=== PATIENT | male | born 1980 | race Two or more races ===

== ENCOUNTER 2018-08-31 13:10 | Emergency (ER) | payer OTHER ==
[~2018-08-31] VITALS: Ht 162.6 cm; Wt 77.3 kg
[2018-08-31] MEDS ORDERED: PERTUSS(ACELL),DIPH,TET VAC/PF 0.5 ML VIAL IM ONE (13:30)
[2018-08-31] MEDS ORDERED: BACITRACIN 0.9 GM PACKET OINTMENT TP ONE (13:30)
[2018-08-31] MEDS ORDERED: LIDOCAINE 1% 10 ML VIAL INJ ONE (13:30)
[2018-08-31] MEDS ORDERED: HYDROCODONE/ACETAMINOPHEN 5-325 MG TABLET PO ONE (13:45)
[2018-08-31 15:34] VITALS: BP 129/76
== END 2018-08-31 15:41 | disposition home or self-care (01) ==
LOC: EMS 13:11
DX: S61.210A Laceration without foreign body of right index finger without damage to nail, initial encounter (principal); W45.8XXA Other foreign body or object entering through skin, initial encounter; Y93.89 Activity, other specified; Y92.511 Restaurant or cafe as the place of occurrence of the external cause; Y99.0 Civilian activity done for income or pay
CPT/HCPCS: 12002; 73130; 90471; 90715; 96372; 99283; J0690; J3490

== ENCOUNTER 2018-09-04 09:59 | Emergency (ER) | payer OTHER ==
[~2018-09-04] VITALS: Ht 165.1 cm; Wt 93.2 kg
[2018-09-04 13:09] VITALS: BP 149/90
== END 2018-09-04 13:12 | disposition home or self-care (01) ==
LOC: EMS 10:00
DX: S61.210D Laceration without foreign body of right index finger without damage to nail, subsequent encounter (principal); M79.644 Pain in right finger(s); W45.8XXD Other foreign body or object entering through skin, subsequent encounter